=== PATIENT | female | born 1985 | race Caucasian/White ===

== ENCOUNTER 2021-08-06 12:53 | Emergency (ER) | payer OTHER ==
[~2021-08-06] VITALS: Ht 175.3 cm; Wt 68.0 kg
[2021-08-06 14:15] VITALS: BP 131/96
== END 2021-08-06 14:18 | disposition home or self-care (01) ==
LOC: ER 12:57
DX: R00.2 Palpitations (principal); R94.31 Abnormal electrocardiogram [ECG] [EKG]
CPT/HCPCS: 36415; 71045; 85379; 93005; 99284